=== PATIENT | male | born 2000 ===

== ENCOUNTER 2022-10-30 21:00 | Emergency (ER) | payer OTHER ==
[~2022-10-30] VITALS: Ht 177.8 cm; Wt 68.2 kg
[2022-10-30 21:14] VITALS: BP 146/91
== END 2022-10-30 22:22 | disposition left against medical advice (07) ==
LOC: EMS 21:03
DX: T40.411A Poisoning by fentanyl or fentanyl analogs, accidental (unintentional), initial encounter (principal); Y92.9 Unspecified place or not applicable; F17.210 Nicotine dependence, cigarettes, uncomplicated
CPT/HCPCS: 99283